=== PATIENT | female | born 1945 | race Caucasian/White ===

== ENCOUNTER 2016-12-16 09:14 | Outpatient (RCR) | payer MEDICARE | END 2016-12-18 15:17 | LOC: OPPGERO 09:14 | DX: F31.9 Bipolar disorder, unspecified (principal); F41.1 Generalized anxiety disorder ==

== ENCOUNTER 2016-12-20 09:00 | Outpatient (RCR) | payer MEDICARE | END 2017-01-19 16:23 | LOC: OPPGERO 09:00 | DX: F31.9 Bipolar disorder, unspecified (principal); F41.1 Generalized anxiety disorder ==

== ENCOUNTER 2017-01-20 10:03 | Outpatient (RCR) | payer MEDICARE | END 2017-02-18 12:59 | LOC: OPPGERO 10:03 | DX: F31.9 Bipolar disorder, unspecified (principal); F41.1 Generalized anxiety disorder ==

== ENCOUNTER 2017-03-23 09:00 | Outpatient (RCR) | payer MEDICARE | END 2017-04-21 15:24 | LOC: OPPGERO 09:00 | DX: F31.9 Bipolar disorder, unspecified (principal); F41.9 Anxiety disorder, unspecified ==

== ENCOUNTER 2017-04-22 10:49 | Outpatient (RCR) | payer MEDICARE | END 2017-05-19 14:18 | LOC: OPPGERO 10:49 | DX: F31.30 Bipolar disorder, current episode depressed, mild or moderate severity, unspecified (principal); F41.1 Generalized anxiety disorder; E78.5 Hyperlipidemia, unspecified; G62.9 Polyneuropathy, unspecified; M25.512 Pain in left shoulder; M25.511 Pain in right shoulder; M25.562 Pain in left knee; M25.561 Pain in right knee ==

== ENCOUNTER 2017-05-20 10:22 | Outpatient (RCR) | payer MEDICARE | END 2017-06-18 11:19 | LOC: OPPGERO 10:22 | DX: F31.30 Bipolar disorder, current episode depressed, mild or moderate severity, unspecified (principal); F41.1 Generalized anxiety disorder; G62.9 Polyneuropathy, unspecified; E78.5 Hyperlipidemia, unspecified; M25.512 Pain in left shoulder; M25.511 Pain in right shoulder; M25.562 Pain in left knee; M25.561 Pain in right knee; G89.29 Other chronic pain ==

== ENCOUNTER 2017-06-21 09:23 | Outpatient (RCR) | payer MEDICARE | END 2017-07-19 13:15 | LOC: OPPGERO 09:23 | DX: F31.30 Bipolar disorder, current episode depressed, mild or moderate severity, unspecified (principal); F41.1 Generalized anxiety disorder; K21.9 Gastro-esophageal reflux disease without esophagitis; M25.512 Pain in left shoulder; M25.511 Pain in right shoulder; M25.562 Pain in left knee; M25.561 Pain in right knee; G89.29 Other chronic pain; G62.9 Polyneuropathy, unspecified; E78.5 Hyperlipidemia, unspecified ==

== ENCOUNTER 2017-07-20 08:59 | Outpatient (RCR) | payer MEDICARE | END 2017-08-19 13:38 | LOC: OPPGERO 08:59 | DX: F31.30 Bipolar disorder, current episode depressed, mild or moderate severity, unspecified (principal); F41.1 Generalized anxiety disorder; M25.512 Pain in left shoulder; M25.511 Pain in right shoulder; M25.562 Pain in left knee; M25.561 Pain in right knee; G89.29 Other chronic pain; G62.9 Polyneuropathy, unspecified; Z79.84 Long term (current) use of oral hypoglycemic drugs; Z79.899 Other long term (current) drug therapy ==

== ENCOUNTER 2017-08-20 10:33 | Outpatient (RCR) | payer MEDICARE | END 2017-09-17 13:07 | LOC: OPPGERO 10:33 | DX: F31.30 Bipolar disorder, current episode depressed, mild or moderate severity, unspecified (principal); F41.1 Generalized anxiety disorder; G62.9 Polyneuropathy, unspecified; M25.512 Pain in left shoulder; M25.511 Pain in right shoulder; M25.562 Pain in left knee; M25.561 Pain in right knee; G89.29 Other chronic pain; Z79.84 Long term (current) use of oral hypoglycemic drugs; Z79.899 Other long term (current) drug therapy; Z63.79 Other stressful life events affecting family and household ==

== ENCOUNTER 2017-09-20 08:59 | Outpatient (RCR) | payer MEDICARE | END 2017-10-19 14:24 | LOC: OPPGERO 08:59 | DX: F31.30 Bipolar disorder, current episode depressed, mild or moderate severity, unspecified (principal); F41.1 Generalized anxiety disorder; G62.9 Polyneuropathy, unspecified; E78.5 Hyperlipidemia, unspecified; M25.512 Pain in left shoulder; M25.511 Pain in right shoulder; G89.29 Other chronic pain; Z63.79 Other stressful life events affecting family and household; Z79.84 Long term (current) use of oral hypoglycemic drugs; Z79.899 Other long term (current) drug therapy ==